=== PATIENT | female | born 1970 | race Caucasian/White ===

== ENCOUNTER 2019-10-12 13:40 | Inpatient (IN) ==
[2019-10-12] MEDS ORDERED: SODIUM CHLORIDE 0.9% 1000ML 1,000 ML IV ONE (13:56)
[2019-10-12] MEDS ORDERED: HYDROmorphone INJ 0.5 MG/0.5 ML SYR IV STA (13:56)
[2019-10-12] MEDS ORDERED: ONDANSETRON INJ 2 MG/ML 2 ML VIAL IV STA (13:56)
[2019-10-12 14:15] LABS: Basophils # (auto) 0.04 K/uL (0-0.2); Basophils % (auto) 0.2 %; Eosinophils # (auto) 0.06 K/uL (0-0.5); Eosinophils % (auto) 0.3 %; Hematocrit (blood only) 43.4 % (37-47); Hemoglobin 14.8 g/dL (12.0-16.0); Immature Granulocytes # (auto) 0.05 K/uL (0.00-0.02); Immature Granulocytes % (auto) 0.3 %; Lymphocytes # (auto) 2.82 K/uL (1.2-3.4); Lymphocytes % (auto) 15.3 %; Mean Corpuscular Hemoglobin 31.7 pg (25-34); Mean Corpuscular Hgb Conc 34.1 g/dL (32-36); Mean Corpuscular Volume 92.9 fL (80-100); Mean Platelet Volume 10.3 fL (7.4-10.4); Monocytes # (auto) 0.78 K/uL (0.11-0.59); Monocytes % (auto) 4.2 %; Neutrophils # (auto) 14.73 K/uL (1.4-6.5); Neutrophils % (auto) 79.7 %; Platelet Count 272 K/uL (130-400); RDW Coefficient of Variation 13.1 % (11.5-14.5); RDW Standard Deviation 45.1 fL (36.4-46.3); Red Blood Count 4.67 M/uL (4.2-5.4); White Blood Count 18.48 K/uL (4.8-10.8)
[2019-10-12 14:25] LABS: Appearance Urine Clear (Clear); Bacteria Urine Automated Negative (Negative); Blood Urine 2+ (Negative); Epithelial Cell Urine Auto 20-30 /lpf (0-5); Glucose Urine UA Negative (Negative); Ketones Urine 2+ (Negative); Leukocyte Esterase Urine Trace (Negative); Nitrite Urine Negative (Negative); Protein Urine Negative (Negative); RBC Urine Automated 0-4 /hpf (0-4); Specific Gravity Urine 1.022 (1.000-1.030); Urobilinogen Urine Negative (Negative)
[2019-10-12 14:31] LABS: Bilirubin Urine Negative (Negative); Color Urine Amber; Ictotest Urine Negative (Negative)
[2019-10-12 14:31] LABS: Albumin Level 3.8 gm/dl (3.4-5.0); BUN Creatinine Ratio 15.7 (10-20); Calcium 9.7 mg/dl (8.5-10.1); Creatinine Clr Calc Pharmacy 82.1 ml/min; Est GFR (African American) 91.9; Est GFR (Non-African American) 79.3; Potassium 3.7 mmol/L (3.5-5.1)
[2019-10-12 14:34] LABS: Albumin Globulin Ratio 0.8 (0.9-2); Bilirubin,Total 0.9 mg/dl (0.2-1); Total Protein 8.8 gm/dl (6.4-8.2)
--- NOTE | 2019-10-12 14:34 | Emergency Department Note ---
History of Present Illness General Chief complaint: Abdominal Pain Stated complaint: ABD PAIN History of Present Illness Maximum Pain Intensity: 4 This pt is a 53 yo female who presents to the ED with c/o L abd pain that began 2 days ago. Pt denies fever, but admits to chills. She has been nauseated. Denies eating anything unusual. Pt had diarrhea x 3 today, no BRBPR or black stools. Pt denies recent travel or sick contacts. 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 and A total of 10 systems reviewed and were otherwise negative Physical Exam Vital Signs Vital Signs - 24 hr 10/12/19 13:43 10/12/19 14:21 10/12/19 14:30 Temperature 36.8 C Temperature Source Oral Pulse Rate 107 H 91 H 90 Pulse Rate [Finger] Pulse Rate from SpO2 Sensor 92 H 91 H Respiratory Rate 18 20 13 Respiratory Effort / Characteristics Non-Labored Spontaneous Respiratory Depth Normal Respiratory Pattern Regular Blood Pressure 129/88 Blood Pressure [Left Arm] Blood Pressure Mean 101 Blood Pressure Mean [Left Arm] Blood Pressure Position Sitting Pulse Oximetry 97 95 95 Oxygen Delivery Method Room Air Sepsis Recent Fever Within 48 Hours No Sepsis New/Unexplained Change in Mental Status No Sepsis Action Taken by Nursing No Action Required 10/12/19 15:00 10/12/19 15:04 10/12/19 15:05 Temperature Temperature Source Pulse Rate 85 93 H Pulse Rate [Finger] 87 Pulse Rate from SpO2 Sensor Respiratory Rate 17 14 22 Respiratory Effort / Characteristics Respiratory Depth Respiratory Pattern Blood Pressure 126/85 Blood Pressure [Left Arm] 126/85 Blood Pressure Mean 95 Blood Pressure Mean [Left Arm] 98 Blood Pressure Position Pulse Oximetry 98 Oxygen Delivery Method Room Air Sepsis Recent Fever Within 48 Hours Sepsis New/Unexplained Change in Mental Status Sepsis Action Taken by Nursing 10/12/19 15:30 10/12/19 15:31 Temperature Temperature Source Pulse Rate 89 85 Pulse Rate [Finger] Pulse Rate from SpO2 Sensor Respiratory Rate 23 21 Respiratory Effort / Characteristics Respiratory Depth Respiratory Pattern Blood Pressure 128/90 Blood Pressure [Left Arm] Blood Pressure Mean 96 Blood Pressure Mean [Left Arm] Blood Pressure Position Pulse Oximetry Oxygen Delivery Method Sepsis Recent Fever Within 48 Hours Sepsis New/Unexplained Change in Mental Status Sepsis Action Taken by Nursing Vital signs reviewed. General: Well-appearing 49 yo female, in no significant distress. HEENT: No scleral icterus, moist mucous membranes Cardiovascular: Regular rate and rhythm, no extra sounds. Pulmonary: Clear to auscultation bilaterally, normal work of breathing. Abdomen: Soft, tender along the left upper and left lower quadrants, positive guarding, positive bowel sounds. Musculoskeletal: Atraumatic, no peripheral edema. Neurologic: Patient awake alert and oriented x 3 Skin: Warm, dry, no rash Course Administered Medications Enoxaparin Sodium (Lovenox) 40 mg SQ HS CLARE Stop: 11/11/19 20:59 Last Admin: 10/12/19 20:36 Dose: 40 mg Documented by: [id number] Ciprofloxacin (Cipro) 400 mg in 200 mls @ 100 mls/hr IV Q12H CLARE Stop: 10/23/19 03:59 Last Infusion: 10/13/19 06:20 Dose: 0 mls/hr Documented by: [id number] Admin: 10/13/19 04:17 Dose: 100 mls/hr Documented by: [id number] Metronidazole (Flagyl) 500 mg in 100 mls @ 100 mls/hr IV Q8H CLARE Stop: 10/22/19 22:59 Last Admin: 10/13/19 07:10 Dose: 100 mls/hr Documented by: [id number] Infusion: 10/12/19 23:27 Dose: 0 mls/hr Documented by: [id number] Admin: 10/12/19 22:25 Dose: 100 mls/hr Documented by: [id number] Sodium Chloride (Nss 1000ml) 1,000 mls @ 125 mls/hr IV .Q8H CLARE Stop: 11/11/19 16:25 Last Admin: 10/13/19 04:16 Dose: 125 mls/hr Documented by: [id number] Infusion: 10/13/19 03:23 Dose: 125 mls/hr Documented by: [id number] Admin: 10/12/19 19:23 Dose: 125 mls/hr Documented by: [id number] Morphine Sulfate (Morphine Sulfate) 4 mg IV Q4 PRN PRN Reason: Pain Stop: 10/26/19 16:25 Last Admin: 10/13/19 07:35 Dose: 4 mg Documented by: [id number] Admin: 10/13/19 01:52 Dose: 4 mg Documented by: [id number] Admin: 10/12/19 20:55 Dose: 4 mg Documented by: [id number] Admin: 10/12/19 16:40 Dose: 4 mg Documented by: [id number] Discontinued Medications Hydromorphone HCl (Dilaudid) 0.5 mg IV NOW STA Stop: 10/12/19 13:57 Last Admin: 10/12/19 14:12 Dose: 0.5 mg Documented by: [id number] Sodium Chloride (Nss 1000ml) 1,000 mls @ 125 mls/hr IV .Q8H ONE Stop: 10/12/19 21:55 Last Infusion: 10/12/19 23:27 Dose: 0 mls/hr Documented by: [id number] Admin: 10/12/19 14:12 Dose: 125 mls/hr Documented by: [id number] Ciprofloxacin (Cipro) 400 mg in 200 mls @ 200 mls/hr IV NOW STA Stop: 10/12/19 16:03 Last Infusion: 10/12/19 17:47 Dose: 0 mls/hr Documented by: [id number] Admin: 10/12/19 16:07 Dose: 200 mls/hr Documented by: [id number] Metronidazole (Flagyl) 500 mg in 100 mls @ 100 mls/hr IV NOW STA Stop: 10/12/19 16:03 Last Infusion: 10/12/19 17:13 Dose: 0 mls/hr Documented by: [id number] Admin: 10/12/19 15:18 Dose: 100 mls/hr Documented by: [id number] Ioversol (Optiray 320 100ml) 94 ml IV ONCE PRN PRN Reason: Interaction Checking Stop: 10/16/19 14:53 Last Admin: 10/12/19 14:55 Dose: 94 ml Documented by: [id number] Ondansetron HCl (Zofran) 4 mg IV NOW STA Stop: 10/12/19 13:57 Last Admin: 10/12/19 14:12 Dose: 4 mg Documented by: [id number] Medical Decision Making Differential Diagnosis Differential considered: pancreatitis, hepatitis, or acute cholecystitis, AAA, UTI, pyelonephritis, kidney stones, appendicitis, diverticulitis, shingles, bowel obstruction mesenteric ischemia, intussusception,hernia, testicular torsion, ovarian torsion, ruptured ovarian cyst,ectopic , . Medical Records Attestation: I reviewed the patient's medical records. Home Medications Current Medication List: was personally reviewed by me Laboratory Data Attestation: I reviewed the patient's lab results. Result diagrams: 10/13/19 05:02 10/13/19 05:02 Lab Results 10/12/19 10/12/19 10/12/19 Range/Units 14:07 14:07 14:14 WBC 18.48 H (4.8-10.8) K/uL RBC 4.67 (4.2-5.4) M/uL Hgb 14.8 (12.0-16.0) g/dL Hct 43.4 (37-47) % MCV 92.9 (80-100) fL MCH 31.7 (25-34) pg MCHC 34.1 (32-36) g/dL RDW Std Deviation 45.1 (36.4-46.3) fL RDW Coeff of Christie 13.1 (11.5-14.5) % Plt Count 272 (130-400) K/uL MPV 10.3 (7.4-10.4) fL Immature Gran % (Auto) 0.3 % Neut % (Auto) 79.7 % Lymph % (Auto) 15.3 % [place] % (Auto) 4.2 % Eos % (Auto) 0.3 % Baso % (Auto) 0.2 % Immature Gran # (Auto) 0.05 H (0.00-0.02) K/uL Neut # (Auto) 14.73 H (1.4-6.5) K/uL Lymph # (Auto) 2.82 (1.2-3.4) K/uL [place] # (Auto) 0.78 H (0.11-0.59) K/uL Eos # (Auto) 0.06 (0-0.5) K/uL Baso # (Auto) 0.04 (0-0.2) K/uL Sodium 133 L (136-145) mmol/L Potassium 3.7 (3.5-5.1) mmol/L Chloride 101 (98-107) mmol/L Carbon Dioxide 24 (21-32) mmol/L Anion Gap 8.0 (3-11) BUN 13 (7-18) mg/dl Creatinine 0.86 (0.6-1.2) mg/dl Est Cr Clr Drug Dosing 82.1 ml/min Est GFR ( Amer) 91.9 Est GFR (Non-Af Amer) 79.3 BUN/Creatinine Ratio 15.7 (10-20) Glucose 88 (70-99) mg/dl Calcium 9.7 (8.5-10.1) mg/dl Total Bilirubin 0.9 (0.2-1) mg/dl AST 11 L (15-37) U/L ALT 16 (12-78) U/L Alkaline Phosphatase 131 H (45-117) U/L Total Protein 8.8 H (6.4-8.2) gm/dl Albumin 3.8 (3.4-5.0) gm/dl Globulin 5.0 H (2.5-4.0) gm/dl Albumin/Globulin Ratio 0.8 L (0.9-2) Lipase 51 L (73-393) U/L Urine Color Giovanna Urine Appearance Clear (Clear) Urine pH 5.0 (4.5-7.5) Ur Specific [place] 1.022 (1.000-1.030) Urine Protein Negative (Negative) Urine Glucose (UA) Negative (Negative) Urine Ketones 2+ H (Negative) Urine Blood 2+ H (Negative) Urine Nitrite Negative (Negative) Urine Bilirubin Negative (Negative) Urine Urobilinogen Negative (Negative) Ur Leukocyte Esterase Trace H (Negative) Urine WBC (Auto) 1-5 (0-5) /hpf Urine RBC (Auto) 0-4 (0-4) /hpf U Hyaline Cast (Auto) 1-5 (0-5) /lpf U Epithel Cells (Auto) 20-30 H (0-5) /lpf Urine Bacteria (Auto) Negative (Negative) Imaging Data Radiologist's Impression: CT abd pelvis IV con only CLINICAL HISTORY: 49 years-old Female presenting with left sided abdominal pain. TECHNIQUE: Multidetector CT of the abdomen and pelvis was performed after the administration of intravenous contrast. IV contrast: 94 mL of Optiray. One or more dose lowering techniques were used consistent with the principles of ALARA (as low as reasonably achievable), including automatic exposure control, mA or kV adjustment to individual patient size, and/or use of iterative reconstruction. COMPARISON: None. CT DOSE (mGy.cm): The estimated cumulative dose is 618.73 mGy.cm. FINDINGS: Scenic Designer topogram: Unremarkable. Lung bases: Normal heart size. No pericardial or pleural effusion. Minimal dependent changes likely atelectasis. Liver: Normal morphology. No liver lesion. Patent hepatic vasculature. Biliary: No intrahepatic or extrahepatic biliary ductal dilatation. Normal gallbladder. Pancreas: Mild parenchymal atrophy. Spleen: Normal. Adrenal glands: Normal. Kidneys and ureters: 3 mm punctate nonobstructing calculus at the lower pole of the right kidney. No hydronephrosis. Bladder: Incompletely evaluated secondary to underdistention. Pelvic organs: Uterus surgically absent. No adnexal masses. Bowel: Diverticulosis of the proximal to mid sigmoid and distal descending colon with focal wall thickening and pericolonic inflammatory change at the junction of the descending and sigmoid colon. Focus of extraluminal gas in the mesentery (series 3 image 276). No focal fluid collection to suggest abscess at this time. Adjacent peritoneal thickening. Peritoneal cavity: Trace fluid in the left paracolic gutter. No focal fluid collection to suggest abscess. Gas collection in the mesentery as mentioned. No free intraperitoneal gas despite the focus of extraluminal gas. Lymph nodes: No enlarged lymph nodes in the abdomen or pelvis. Vasculature: Aorta and IVC patent and normal in caliber. Abdominal wall: Normal. Musculoskeletal: Degenerative changes of the spine. IMPRESSION: 1. Acute diverticulitis at the junction of the descending and sigmoid colon with extraluminal foci of gas in the mesentery. No free air. No focal fluid collection to suggest abscess. Moderate surrounding inflammatory change. ACT 112: Negative or not required by law. Electronically signed by: Rod Payan M.D. 10/12/2019 3:15 PM Dictated: 10/12/19 1505 Transcribed: 10/12/19 1505 ECG Data Additional Comments: An order for cardiac monitoring was placed and the patient is found to be in a normal sinus rhythm at 90 bpm. Blood Pressure Blood Pressure Findings: Normal blood pressure Blood Pressure Disposition: did not require urgent referral MDM Narrative This patient was evaluated and appeared to be in no significant distress. IV access was obtained and laboratory work was drawn. The patient was placed on the security monitor and found to be in a sinus rhythm. IV fluids were initiated. Patient was medicated with IV Dilaudid and Zofran for her discomfort. CT imaging was ordered. Patient is noted to have an elevated WBC at 18.48. CT reveals evidence of an acute diverticulitis along the junction of the descending and sigmoid colon with an extraluminal foci of gas. Patient was informed of the findings. Patient has a penicillin allergy and was medicated with IV Cipro and Flagyl. I did speak with hospitalist service who will evaluate the patient for further management. Patient is aware of the plan and agrees. Impression & Plan Diverticulitis Discharge Plan Visit Data *Final* Discharge Date/Time: 10/12/19 16:12 Chief Complaint: Abdominal Pain Stated Complaint: ABD PAIN ED Provider: Akilah Tate Discharge Problem: Diverticulitis Patient Disposition: Admitted As Inpatient Discharge Instructions Interventions: ED Discharge Assessment Last Done: 10/12/19 16:12
[2019-10-12] MEDS ORDERED: IOVERSOL 100ml IV PRN (14:54)
[2019-10-12] MEDS ORDERED: CIPROFLOXACIN / D5W 400 MG/200 ML BAG IV STA (15:04)
[2019-10-12] MEDS ORDERED: metroNIDAZOLE 500 MG/100 ML BAG IV STA (15:04)
--- NOTE | 2019-10-12 15:17 | CT Scan Report ---
CT abd pelvis IV con only CLINICAL HISTORY: 49 years-old Female presenting with left sided abdominal pain. TECHNIQUE: Multidetector CT of the abdomen and pelvis was performed after the administration of intra venous contrast. IV contrast: 94 mL of Optiray. One or more dose lowering techniques were used consis tent with the principles of ALARA (as low as reasonably achievable), including automatic exposure con trol, mA or kV adjustment to individual patient size, and/or use of iterative reconstruction. COMPARISON: None. CT DOSE (mGy.cm): The estimated cumulative dose is 618.73 mGy.cm. FINDINGS: Solar Electric/Photovoltaic Installer topogram: Unremarkable. Lung bases: Normal heart size. No pericardial or pleural effusion. Minimal dependent changes likely a telectasis. Liver: Normal morphology. No liver lesion. Patent hepatic vasculature. Biliary: No intrahepatic or extrahepatic biliary ductal dilatation. Normal gallbladder. Pancreas: Mild parenchymal atrophy. Spleen: Normal. Adrenal glands: Normal. Kidneys and ureters: 3 mm punctate nonobstructing calculus at the lower pole of the right kidney. No hydronephrosis. Bladder: Incompletely evaluated secondary to underdistention. Pelvic organs: Uterus surgically absent. No adnexal masses. Bowel: Diverticulosis of the proximal to mid sigmoid and distal descending colon with focal wall thic [place] and pericolonic inflammatory change at the junction of the descending and sigmoid colon. Focus of extraluminal gas in the mesentery (series 3 image 276). No focal fluid collection to suggest absc ess at this time. Adjacent peritoneal thickening. Peritoneal cavity: Trace fluid in the left paracolic gutter. No focal fluid collection to suggest abs cess. Gas collection in the mesentery as mentioned. No free intraperitoneal gas despite the focus of extraluminal gas. Lymph nodes: No enlarged lymph nodes in the abdomen or pelvis. Vasculature: Aorta and IVC patent and normal in caliber. Abdominal wall: Normal. Musculoskeletal: Degenerative changes of the spine. IMPRESSION: 1. Acute diverticulitis at the junction of the descending and sigmoid colon with extraluminal foci o f gas in the mesentery. No free air. No focal fluid collection to suggest abscess. Moderate surroundi ng inflammatory change. ACT 112: Negative or not required by law. Electronically signed by: Rod Payan M.D. 10/12/2019 3:15 PM
--- NOTE | 2019-10-12 16:24 | History & Physical Report ---
Date of Service October 12, 2019 Assessment & Plan (1) Acute diverticulitis: Pt with acute abdominal pain x 3 days, change in stool habits, decreased appetite. Leukocytosis at 18.48k CT scan abdomen pelvis revealed acute diverticulitis at the junction of the descending and sigmoid colon with extraluminal foci of gas in the mesentery. No free air. No focal fluid collection to suggest abscess. Moderate surrounding inflammatory change. admit to med/surg consult general surgery - spoke to Dr. Pedersen -appreciate his input Continue Cipro/Flagyl NPO except ice chips Bowel rest IVF 125cc/hr (2) Microscopic hematuria: UA +2 blood recommend repeat UA either while hospitalized or as outpt for follow up (3) DVT prophylaxis: Lovenox SQ Disposition: admit to med/surg Follow up: PCP at [facility] upon discharge along with appropriate surgical follow up Pt was seen and examined in collaboration with Dr. Arevalo, please see addendum Admission and Anticipated Discharge Date Admission Date: October 12, 2019 History of Present Illness Chief Complaint: Abdominal pain x3 days. Primary Care Provider: [facility] This is a pleasant 49-year-old female who has no significant past medical history who presents to ED secondary to abdominal pain x3 days. Abdominal pain mostly located left upper and left lower quadrant. Pain is constant but comes and goes in severity. Is improved with rest and is made worse with any sort of position change. She denies any nausea and vomiting but overall has had significant decreased appetite and has not anything to eat or drink for the past 24 hours. She further elicits chills. She did have 3 BMs yesterday that were formed and 2 this morning that were diarrhea. She denies any melena or hematochezia. Typically she moves her bowels once daily first thing in the morning. She is never had anything like this in the past, except pain when she had a hysterectomy. She denies any cody fever, sweats, dizziness, lightheadedness, syncope, chest pain, shortness breath, palpitations, cough, emesis, hematemesis, dysuria, increased urgency or frequency with urination. She denies any recent respiratory symptoms or known contact or exposure to covid-19. In ED patient remained hemodynamically stable. She had leukocytosis at 18.4k, H&H stable at 14.8 and 43.4, platelet 272, sodium 133, K3.7, BUN 13, creatinine 0.86, lipase 51. Urinalysis +2 ketones, +2 blood numerous epithelial cells, likely contaminated. CT scan abdomen pelvis revealed acute diverticulitis at the junction of the descending and sigmoid colon with extraluminal foci of gas in the mesentery. No free air. No focal fluid collection to suggest abscess. Moderate surrounding inflammatory change. She was started on IV Cipro/Flagyl in ED as well as IVF. Pain improved with dilaudid. 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 Beliefs That Will Affect Care: None marital status: Current Living Situation: Spouse Other Information That Helps Us Care for You: No Feels Safe at Home: Yes Safety Concerns: Feels Safe At This Time Smoking Status: Current every day smoker Tobacco Type: cigarettes ; packs per day: 0.5 ; Years Smoked: 25 ; Hx Alcohol Use: Yes Alcohol type: wine Alcohol Intake Frequency: Rarely Hx Substance Use: No Review of Systems Review of Systems: All systems reviewed & are unremarkable except as noted in HPI & below Physical Exam Physical Exam: Constitutional: WD/WN, vitals as above, NAD, sitting up in bed, pleasant, conversing easily Head: Normocephalic, Atraumatic Eyes: PERRL, conjunctivae normal, anicteric sclerae ENMT: external ear and nose normal, oropharynx normal Neck: trachea midline, no thyromegaly normal visual inspection Respiratory: normal respiratory effort, lungs clear to auscultation, no wheeze, rales, rhonchi. Normal insp/exp effort, no accessory muscle use Cardiovascular: RRR, no murmur, no edema Vessels: no JVD or carotid bruit Chest: normal inspection of chest Abdomen: normal bowel sounds, soft, tender throughout abdominal with maximal pain at LLQ and LUQ, no rebound, guarding, no hepatosplenomegaly Musculoskeletal: no cyanosis or clubbing, extremities motor strength 5/5 Skin: no rashes, warm and dry normal turgor Neurologic: PERRL, , accommodation nl, no face palsy, no dysarthria CN's II-XI intact bilaterally and moves all extremities Psychiatric: A+Ox3, euthymic affect Lymphatic: no cervical or axillary lymphadenopathy : deferred Results & Data Results & Data ([facility]) Vital Signs (Past 12 Hours) Vital Signs Temp Pulse Pulse Resp BP BP Pulse Ox 10/12/19 16:01 88 17 10/12/19 16:00 85 22 135/87 10/12/19 15:31 85 21 10/12/19 15:30 89 23 128/90 10/12/19 15:05 93 H 22 126/85 10/12/19 15:04 85 14 10/12/19 15:00 87 17 126/85 98 10/12/19 14:30 90 13 95 10/12/19 14:21 91 H 20 95 10/12/19 13:43 36.8 C 107 H 18 129/88 97 Laboratory Results Short CBC 10/12/19 Range/Units 14:07 WBC 18.48 H (4.8-10.8) K/uL Hgb 14.8 (12.0-16.0) g/dL Hct 43.4 (37-47) % Plt Count 272 (130-400) K/uL BMP 10/12/19 14:07 Sodium 133 L Potassium 3.7 Chloride 101 Carbon Dioxide 24 BUN 13 Creatinine 0.86 Glucose 88 Calcium 9.7 Liver Function 10/12/19 Range/Units 14:07 Total Bilirubin 0.9 (0.2-1) mg/dl AST 11 L (15-37) U/L ALT 16 (12-78) U/L Alkaline Phosphatase 131 H (45-117) U/L Albumin 3.8 (3.4-5.0) gm/dl Urine 10/12/19 Range/Units 14:14 Urine Color Giovanna Urine Appearance Clear (Clear) Urine pH 5.0 (4.5-7.5) Ur Specific [place] 1.022 (1.000-1.030) Urine Protein Negative (Negative) Urine Glucose (UA) Negative (Negative) Diagnostic Findings abd/pelvis CT: FINDINGS: Playground Official topogram: Unremarkable. Lung bases: Normal heart size. No pericardial or pleural effusion. Minimal dependent changes likely atelectasis. Liver: Normal morphology. No liver lesion. Patent hepatic vasculature. Biliary: No intrahepatic or extrahepatic biliary ductal dilatation. Normal gallbladder. Pancreas: Mild parenchymal atrophy. Spleen: Normal. Adrenal glands: Normal. Kidneys and ureters: 3 mm punctate nonobstructing calculus at the lower pole of the right kidney. No hydronephrosis. Bladder: Incompletely evaluated secondary to underdistention. Pelvic organs: Uterus surgically absent. No adnexal masses. Bowel: Diverticulosis of the proximal to mid sigmoid and distal descending colon with focal wall thickening and pericolonic inflammatory change at the junction of the descending and sigmoid colon. Focus of extraluminal gas in the mesentery (series 3 image 276). No focal fluid collection to suggest abscess at this time. Adjacent peritoneal thickening. Peritoneal cavity: Trace fluid in the left paracolic gutter. No focal fluid collection to suggest abscess. Gas collection in the mesentery as mentioned. No free intraperitoneal gas despite the focus of extraluminal gas. Lymph nodes: No enlarged lymph nodes in the abdomen or pelvis. Vasculature: Aorta and IVC patent and normal in caliber. Abdominal wall: Normal. Musculoskeletal: Degenerative changes of the spine. IMPRESSION: 1. Acute diverticulitis at the junction of the descending and sigmoid colon with extraluminal foci of gas in the mesentery. No free air. No focal fluid collection to suggest abscess. Moderate surrounding inflammatory change. Medications Administered Sodium Chloride (Nss 1000ml) 1,000 mls @ 125 mls/hr IV .Q8H ONE Stop: 10/12/19 21:55 Last Admin: 10/12/19 14:12 Dose: 125 mls/hr Documented by: [id number] Discontinued Medications Hydromorphone HCl (Dilaudid) 0.5 mg IV NOW STA Stop: 10/12/19 13:57 Last Admin: 10/12/19 14:12 Dose: 0.5 mg Documented by: [id number] Ciprofloxacin (Cipro) 400 mg in 200 mls @ 200 mls/hr IV NOW STA Stop: 10/12/19 16:03 Last Admin: 10/12/19 16:07 Dose: 200 mls/hr Documented by: [id number] Metronidazole (Flagyl) 500 mg in 100 mls @ 100 mls/hr IV NOW STA Stop: 10/12/19 16:03 Last Admin: 10/12/19 15:18 Dose: 100 mls/hr Documented by: [id number] Ioversol (Optiray 320 100ml) 94 ml IV ONCE PRN PRN Reason: Interaction Checking Stop: 10/16/19 14:53 Last Admin: 10/12/19 14:55 Dose: 94 ml Documented by: [id number] Ondansetron HCl (Zofran) 4 mg IV NOW STA Stop: 10/12/19 13:57 Last Admin: 10/12/19 14:12 Dose: 4 mg Documented by: [id number] Code Status & VTE Plan Code Status Full Code VTE Prophylaxis Plan VTE Prophylaxis will be ordered: Yes Supervising Physician Co-Signing Physician Notes Attending addendum: The patient was seen and examined in medical floor She is a 49-year-old female without significant past medical history has been c omplaining of left lower quadrant abdominal pain since Saturday last Condition got worse with nausea but no vomiting but chills and sweating Noted to have acute diverticulitis with microscopic perforation with abscess On examination Lying in bed comfortably Hemodynamically stable and is afebrile Chestclear to auscultate bilaterally HeartS1-S2 regular no murmur Abdomen-soft not distended, bowel sounds present, tenderness in the left lower quadrant Extremities-trace edema bilaterally Admission labs and imaging studies reviewed Has acute diverticulitis with microperforation Surgery consulted N.p.o., IV fluid and symptomatic management Agree with assessment and plan as outlined above by ARABELLA Kessler DR
[2019-10-12] MEDS: MoRPHine SULFATE 4 MG/ML 1 ML CARP\\VIAL IV PRN ×2 (16:40→20:55)
--- NOTE | 2019-10-12 16:47 | Surgery Consultation ---
Date of Consultation October 12, 2019 Assessment & Plan (1) Acute diverticulitis: is is a 49y F with no significant past medical history who presents to the [facility] ED on 10/12/19 with complaints of abdominal pain. Workup has reveled evidence of acute diverticulitis at the junction of the descending and sigmoid colon, with extraluminal foci of gas in the mesentery. No fluid collection seen at this time. WBC 18. At this time would recommend a trial of conservative management. Continue IV abx, currently ordered for IV cipro and flagyl. Will plan to keep patient NPO with ice chips over the next 48hrs for bowel rest. We will continue to follow. Dr Pedersen-patient seen and examined Agree with above assessment and plan History of Present Illness Attending Physician: Elizabeth Arevalo MD History of Present Illness This is a 49y F with no significant past medical history who presents to the [facility] ED on 10/12/19 with complaints of abdominal pain. Patient reports the pain began on Saturday night and continued through Saturday. She initially thought she was experiencing gas pains and she did have a normal BM on Saturday. Unfortunately her abdominal pain continued to persist and she developed episodes of diarrhea(non-bloody) today, prompting her to come to the ED for further evaluation. In the ED she was worked up with a CT a/p that revealed acute diverticulitis at the junction of the descending and sigmoid colon with extraluminal foci of gas in the mesentery. No free air, and no fluid collection to suggest abscess. WBC 18.4. Patient denies ever having an episode of diverticulitis before. She has not yet had a colonoscopy. She reports her pain is generalized, slightly worse on the L side. It is crampy in character when lying down and sharp with movements, rating it an 8/10 at its worst. She has not had much of an appetite and hasn't eaten a meal since Saturday. She denies any fevers, nausea/vomiting, chest pains, or SOB. 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 Beliefs That Will Affect Care: None marital status: Current Living Situation: Spouse Other Information That Helps Us Care for You: No Feels Safe at Home: Yes Safety Concerns: Feels Safe At This Time Smoking Status: Current every day smoker Tobacco Type: cigarettes ; packs per day: 0.5 ; Years Smoked: 25 ; Hx Alcohol Use: Yes Alcohol type: wine Alcohol Intake Frequency: Rarely Hx Substance Use: No Review of Systems Constitutional: + chills (on Saturday); no fever Respiratory: no dyspnea Cardiovascular: no chest pain Gastrointestinal: + abdominal pain (generalized, but slightly worse on the L side), + bloating, + cramping and + diarrhea/loose stools (today); no nausea and no vomiting Physical Exam Physical Exam: awake/alert Constitutional: well developed and well nourished; no acute distress Respiratory: normal respiratory effort Gastrointestinal (Abdomen): Percussion/Palpation: + abdomen tender (generalized TTP, worse in mid abd on R and L sides) and abdomen soft Results & Data Vital Signs (Past 12 Hours) Vital Signs Temp Pulse Pulse Resp BP BP Pulse Ox 10/12/19 16:01 88 17 10/12/19 16:00 85 22 135/87 10/12/19 15:31 85 21 10/12/19 15:30 89 23 128/90 10/12/19 15:05 93 H 22 126/85 10/12/19 15:04 85 14 10/12/19 15:00 87 17 126/85 98 10/12/19 14:30 90 13 95 10/12/19 14:21 91 H 20 95 10/12/19 13:43 36.8 C 107 H 18 129/[address] abd pelvis IV con only CLINICAL HISTORY: 49 years-old Female presenting with left sided abdominal pain. TECHNIQUE: Multidetector CT of the abdomen and pelvis was performed after the administration of intravenous contrast. IV contrast: 94 mL of Optiray. One or more dose lowering techniques were used consistent with the principles of ALARA (as low as reasonably achievable), including automatic exposure control, mA or kV adjustment to individual patient size, and/or use of iterative ngoc nstruction. COMPARISON: None. CT DOSE (mGy.cm): The estimated cumulative dose is 618.73 mGy.cm. FINDINGS: [employer]el[employer] Data Entry topogram: Unremarkable. Lung bases: Normal heart size. No pericardial or pleural effusion. Minimal dependent changes likely atelectasis. Liver: Normal morphology. No liver lesion. Patent hepatic vasculature. Biliary: No intrahepatic or extrahepatic biliary ductal dilatation. Normal gallbladder. Pancreas: Mild parenchymal atrophy. Spleen: Normal. Adrenal glands: Normal. Kidneys and ureters: 3 mm punctate nonobstructing calculus at the lower pole of the right kidney. No hydronephrosis. Bladder: Incompletely evaluated secondary to underdistention. Pelvic organs: Uterus surgically absent. No adnexal masses. Bowel: Diverticulosis of the proximal to mid sigmoid and distal descending colon with focal wall thickening and pericolonic inflammatory change at the junction of the descending and sigmoid colon. Focus of extraluminal gas in the mesentery (series 3 image 276). No focal fluid collection to suggest abscess at this time. Adjacent peritoneal thickening. Peritoneal cavity: Trace fluid in the left paracolic gutter. No focal fluid collection to suggest abscess. Gas collection in the mesentery as mentioned. No free intraperitoneal gas despite the focus of extraluminal gas. Lymph nodes: No enlarged lymph nodes in the abdomen or pelvis. Vasculature: Aorta and IVC patent and normal in caliber. Abdominal wall: Normal. Musculoskeletal: Degenerative changes of the spine. IMPRESSION: 1. Acute diverticulitis at the junction of the descending and sigmoid colon with extraluminal foci of gas in the mesentery. No free air. No focal fluid collection to suggest abscess. Moderate surrounding inflammatory change. ACT 112: Negative or not required by law. Electronically signed by: Rod Payan M.D. 10/12/2019 3:15 PM PG Care Time/CCT Total # of Minutes Spent Total Time Spent with Patient: Total time spent is greater than 50% in coordination of care (as documented) at patient's floor/unit and/or counseling patient: Coding Level of Care Code 15164 Inpt Consult Level 3 Diagnoses Acute diverticulitis K57.92
[2019-10-12] MEDS: SODIUM CHLORIDE 0.9% 1000ML 1,000 ML IV SCH (19:23)
[2019-10-12] MEDS: ENOXAPARIN INJ 40 MG/0.4 ML SYR SQ SCH (20:36)
[2019-10-12] MEDS: metroNIDAZOLE 500 MG/100 ML BAG IV SCH (22:25)
[2019-10-13] MEDS: MoRPHine SULFATE 4 MG/ML 1 ML CARP\\VIAL IV PRN ×4 (01:52→20:27)
[2019-10-13] MEDS: SODIUM CHLORIDE 0.9% 1000ML 1,000 ML IV SCH ×4 (04:16→23:56)
[2019-10-13] MEDS: CIPROFLOXACIN / D5W 400 MG/200 ML BAG IV SCH ×2 (04:17→16:41)
[2019-10-13 05:19] LABS: Basophils # (auto) 0.03 K/uL (0-0.2); Basophils % (auto) 0.2 %; Eosinophils # (auto) 0.08 K/uL (0-0.5); Eosinophils % (auto) 0.6 %; Hematocrit (blood only) 37.9 % (37-47); Hemoglobin 12.3 g/dL (12.0-16.0); Immature Granulocytes # (auto) 0.02 K/uL (0.00-0.02); Immature Granulocytes % (auto) 0.2 %; Mean Corpuscular Hemoglobin 30.4 pg (25-34); Mean Corpuscular Hgb Conc 32.5 g/dL (32-36); Mean Corpuscular Volume 93.8 fL (80-100); Mean Platelet Volume 10.4 fL (7.4-10.4); Monocytes # (auto) 0.64 K/uL (0.11-0.59); Monocytes % (auto) 4.9 %; Neutrophils # (auto) 9.91 K/uL (1.4-6.5); Neutrophils % (auto) 75.1 %; Platelet Count 210 K/uL (130-400); RDW Coefficient of Variation 13.1 % (11.5-14.5); RDW Standard Deviation 45.2 fL (36.4-46.3); Red Blood Count 4.04 M/uL (4.2-5.4); White Blood Count 13.18 K/uL (4.8-10.8)
[2019-10-13 05:47] LABS: BUN Creatinine Ratio 21.3 (10-20); Calcium 8.7 mg/dl (8.5-10.1); Creatinine Clr Calc Pharmacy 105.4 ml/min; Est GFR (African American) 119.6; Est GFR (Non-African American) 103.2; Potassium 3.9 mmol/L (3.5-5.1)
[2019-10-13] MEDS: metroNIDAZOLE 500 MG/100 ML BAG IV SCH ×3 (07:10→22:35)
--- NOTE | 2019-10-13 07:46 | Surgery Progress Note ---
Date of Service October 13, 2019 Assessment & Plan (1) Acute diverticulitis: cont NPO except ice cont IV atbx, pain med likely will need 4-5 days IV atbx in hospital encouraged to walk in hallway Subjective afeb awake alert- affect- noormal mild pain Physical Exam Constitutional: no acute distress Respiratory: normal respiratory effort Cardiovascular: Rate/Rhythm: regular rate Gastrointestinal (Abdomen): mild lower abd discomfort Skin: no rashes, warm and dry Neurologic: awake Psychiatric: Orientation: alert Results & Data Vital Signs (Past 12 Hours) Vital Signs Temp Pulse Resp BP Pulse Ox 10/12/19 23:18 37 C 80 16 101/66 93 PG Care Time/CCT Total # of Minutes Spent Total Time Spent with Patient: Total time spent is greater than 50% in coordination of care (as documented) at patient's floor/unit and/or counseling patient: Coding Level of Care Code 34291 Subseq Hosp Care Lvl 3 Diagnoses Acute diverticulitis K57.92
--- NOTE | 2019-10-13 09:00 | Hospitalist Progress Note ---
Date of Service October 13, 2019 Assessment & Plan (1) Acute diverticulitis: Pt with acute abdominal pain x 3 days, change in stool habits, decreased appetite. Leukocytosis at 18.48k now 13k CT scan abdomen pelvis revealed acute diverticulitis at the junction of the descending and sigmoid colon with extraluminal foci of gas in the mesentery. No free air. No focal fluid collection to suggest abscess. Moderate surrounding inflammatory change. Continue Cipro/Flagyl Day #2 NPO except ice chips continue Bowel rest continue IVF 125cc/hr while NPO appreciate general surgery input IV morphine q4h prn pain, will schedule IV acetaminophen incentive spirometry and ambulation encouraged (2) Microscopic hematuria: UA +2 blood on admission repeat UA tomorrow (3) DVT prophylaxis: Lovenox SQ Disposition: admit to med/surg likely to need IV antibiotics for 4 to 5 days per surgery Follow up: PCP at [facility] upon discharge along with appropriate surgical follow up Pt was seen and examined in collaboration with Dr. Arevalo, please see addendum Admission and Anticipated Discharge Date Admission Date: October 12, 2019 Supervising Physician Co-Signing Physician Notes Attending addendum: The patient was seen and examined in medical floor She has been ambulating without much pain Complains to have pain in left lower quadrant especially with movement of the waist while sitting down in bed and moving around in bed No fever and no chills On examination No apparent distress at rest Hemodynamically stable Chest-clear Abdomen-soft, tender in the left lower quadrant, no guarding and no rigidity, bowel sounds present Extremities-negative Labs and imaging studies noted Reviewed assessment and plan as outlined above by Sol Arevalo Subjective Patient was seen and examined in room 306-1. Follow-up acute diverticulitis hospital day 1. She feels about 50% better since yesterday in regards to pain. Currently complains of left lower quadrant abdominal pain, dull ache, worse with movement, 5/10, temporary improvement with morphine. She did have small BM this morning that was diarrhea. She denies fever, chills, sweats, lightheadedness, dizziness, chest pain, shortness of breath, nausea, vomiting. She is urinating without difficulty. Review of Systems Review of Systems: All systems reviewed & are unremarkable except as noted in HPI & below Physical Exam Physical Exam: Gen: WD/WN, F, NAD, A&O x3 HEENT: Normocephalic, atraumatic, conjunctivae moist, sclerae anicteric, mucous membranes moist. Lung: Clear to Auscultation bilaterally, no wheezes/rales/rhonchi Heart: Regular rate, regular rhythm, no murmurs, rubs, or gallops Abdomen: Soft, tender to palp LLQ, no rebound, guarding or rigidity, ND +BS x 4 Extremities: No edema Skin: Warm, no rash, negative turgor. Results & Data Results & Data ([facility]) Vital Signs (Past 12 Hours) Vital Signs Temp Pulse Resp BP Pulse Ox 10/13/19 07:42 36.6 C 73 16 100/68 96 10/12/19 23:18 37 C 80 16 101/66 93 Laboratory Results Short CBC 10/12/19 10/13/19 Range/Units 14:07 05:02 WBC 18.48 H 13.18 H (4.8-10.8) K/uL Hgb 14.8 12.3 (12.0-16.0) g/dL Hct 43.4 37.9 (37-47) % Plt Count 272 210 (130-400) K/uL BMP 10/12/19 10/13/19 14:07 05:02 Sodium 133 L 137 Potassium 3.7 3.9 Chloride 101 109 H Carbon Dioxide 24 22 BUN 13 14 Creatinine 0.86 0.67 Glucose 88 91 Calcium 9.7 8.7 Liver Function 10/12/19 Range/Units 14:07 Total Bilirubin 0.9 (0.2-1) mg/dl AST 11 L (15-37) U/L ALT 16 (12-78) U/L Alkaline Phosphatase 131 H (45-117) U/L Albumin 3.8 (3.4-5.0) gm/dl Urine 10/12/19 Range/Units 14:14 Urine Color Giovanna Urine Appearance Clear (Clear) Urine pH 5.0 (4.5-7.5) Ur Specific [place] 1.022 (1.000-1.030) Urine Protein Negative (Negative) Urine Glucose (UA) Negative (Negative) Medications Administered Enoxaparin Sodium (Lovenox) 40 mg SQ HS CLARE Stop: 11/11/19 20:59 Last Admin: 10/12/19 20:36 Dose: 40 mg Documented by: [id number] Ciprofloxacin (Cipro) 400 mg in 200 mls @ 100 mls/hr IV Q12H CLARE Stop: 10/23/19 03:59 Last Infusion: 10/13/19 06:20 Dose: 0 mls/hr Documented by: [id number] Admin: 10/13/19 04:17 Dose: 100 mls/hr Documented by: [id number] Metronidazole (Flagyl) 500 mg in 100 mls @ 100 mls/hr IV Q8H CLARE Stop: 10/22/19 22:59 Last Admin: 10/13/19 07:10 Dose: 100 mls/hr Documented by: [id number] Infusion: 10/12/19 23:27 Dose: 0 mls/hr Documented by: [id number] Admin: 10/12/19 22:25 Dose: 100 mls/hr Documented by: [id number] Sodium Chloride (Nss 1000ml) 1,000 mls @ 125 mls/hr IV .Q8H CLARE Stop: 11/11/19 16:25 Last Admin: 10/13/19 04:16 Dose: 125 mls/hr Documented by: [id number] Infusion: 10/13/19 03:23 Dose: 125 mls/hr Documented by: [id number] Admin: 10/12/19 19:23 Dose: 125 mls/hr Documented by: [id number] Morphine Sulfate (Morphine Sulfate) 4 mg IV Q4 PRN PRN Reason: Pain Stop: 10/26/19 16:25 Last Admin: 10/13/19 07:35 Dose: 4 mg Documented by: [id number] Admin: 10/13/19 01:52 Dose: 4 mg Documented by: [id number] Admin: 10/12/19 20:55 Dose: 4 mg Documented by: [id number] Admin: 10/12/19 16:40 Dose: 4 mg Documented by: [id number] Discontinued Medications Hydromorphone HCl (Dilaudid) 0.5 mg IV NOW STA Stop: 10/12/19 13:57 Last Admin: 10/12/19 14:12 Dose: 0.5 mg Documented by: [id number] Sodium Chloride (Nss 1000ml) 1,000 mls @ 125 mls/hr IV .Q8H ONE Stop: 10/12/19 21:55 Last Infusion: 10/12/19 23:27 Dose: 0 mls/hr Documented by: [id number] Admin: 10/12/19 14:12 Dose: 125 mls/hr Documented by: [id number] Ciprofloxacin (Cipro) 400 mg in 200 mls @ 200 mls/hr IV NOW STA Stop: 10/12/19 16:03 Last Infusion: 10/12/19 17:47 Dose: 0 mls/hr Documented by: [id number] Admin: 10/12/19 16:07 Dose: 200 mls/hr Documented by: [id number] Metronidazole (Flagyl) 500 mg in 100 mls @ 100 mls/hr IV NOW STA Stop: 10/12/19 16:03 Last Infusion: 10/12/19 17:13 Dose: 0 mls/hr Documented by: [id number] Admin: 10/12/19 15:18 Dose: 100 mls/hr Documented by: [id number] Ioversol (Optiray 320 100ml) 94 ml IV ONCE PRN PRN Reason: Interaction Checking Stop: 10/16/19 14:53 Last Admin: 10/12/19 14:55 Dose: 94 ml Documented by: [id number] Ondansetron HCl (Zofran) 4 mg IV NOW STA Stop: 10/12/19 13:57 Last Admin: 10/12/19 14:12 Dose: 4 mg Documented by: [id number]
[2019-10-13] MEDS: ACETAMINOPHEN 1,000 MG/100 ML VIAL IV SCH ×2 (09:38→17:36)
[2019-10-13] MEDS: ONDANSETRON INJ 2 MG/ML 2 ML VIAL IV PRN (20:35)
[2019-10-13] MEDS: ENOXAPARIN INJ 40 MG/0.4 ML SYR SQ SCH (20:45)
[2019-10-14] MEDS: ACETAMINOPHEN 1,000 MG/100 ML VIAL IV SCH ×4 (00:22→21:37)
[2019-10-14] MEDS: CIPROFLOXACIN / D5W 400 MG/200 ML BAG IV SCH ×2 (03:50→15:30)
[2019-10-14] MEDS: metroNIDAZOLE 500 MG/100 ML BAG IV SCH ×3 (06:23→22:18)
[2019-10-14] MEDS: SODIUM CHLORIDE 0.9% 1000ML 1,000 ML IV SCH ×2 (06:26→17:14)
[2019-10-14 06:35] LABS: Appearance Urine Clear (Clear); Bacteria Urine Automated Negative (Negative); Bilirubin Urine Negative (Negative); Blood Urine Trace (Negative); Cast Urine Automated 0 /lpf (0-5); Color Urine Yellow; Glucose Urine UA Negative (Negative); Ketones Urine 3+ (Negative); Leukocyte Esterase Urine Trace (Negative); Nitrite Urine Negative (Negative); Protein Urine Negative (Negative); Specific Gravity Urine 1.026 (1.000-1.030); Urobilinogen Urine Negative (Negative)
--- NOTE | 2019-10-14 06:37 | Surgery Progress Note ---
Date of Service October 14, 2019 Assessment & Plan (1) Acute diverticulitis: will begin clear liquids and advance very slowly 2-3 more days IV atbx, then 10 days po ( at least total 2 wks ) possible rescan, if doing well, may wait 7-10 days Subjective afeb feeling better Physical Exam Constitutional: well nourished; no acute distress and not ill appearing Respiratory: normal respiratory effort; no respiratory distress Cardiovascular: Rate/Rhythm: regular rate Gastrointestinal (Abdomen): Inspection/Auscultation: abdomen not distended Skin: no rashes, warm and dry Neurologic: awake Psychiatric: Orientation: alert Results & Data Vital Signs (Past 12 Hours) Vital Signs Temp Pulse Resp BP Pulse Ox 10/13/19 23:17 36.5 C 60 16 108/71 96 PG Care Time/CCT Total # of Minutes Spent Total Time Spent with Patient: Total time spent is greater than 50% in coordination of care (as documented) at patient's floor/unit and/or counseling patient: Coding Level of Care Code 13107 Inpt Consult Level 3 Diagnoses Acute diverticulitis K57.92
--- NOTE | 2019-10-14 17:21 | Hospitalist Progress Note ---
Date of Service October 14, 2019 Assessment & Plan (1) Acute diverticulitis: Present on admission with worsening abdominal pain x [address] scan abdomen pelvis revealed acute diverticulitis at the junction of the descending and sigmoid colon with extraluminal foci of gas in the mesentery. No free air. No focal fluid collection to suggest abscess. Moderate surrounding inflammatory change. Leukocytosis on admission 18.48k, then dropped to 13k Continue Cipro/Flagyl Day 32 Starting on clear liquid iet today continue IVF and pain control incentive spirometry and ambulation encouraged surgery on board recommended to continue IV abx and advanced diet slowly as tolerated Will need to get outpatient colonoscopy in 8 weeks (2) Microscopic hematuria: UA showed trace of blood Hgb stable Will need outpatient follow up and work up (3) DVT prophylaxis: On Lovenox SQ Code Status Full code Disposition Will discharge once medically stable Admission and Anticipated Discharge Date Admission Date: October 12, 2019 Subjective Pt was seen and examined Sitting in bed with no distress Pt said that she feels much better today She said that she does not have any abdominal pain She said that her stools have been watery Starting on clear liquid diet and tolerated well Denies any chest pain, palpitation, dizziness and SOB Physical Exam Physical Exam: General- No acute distress Head- atraumatic Eyes- PERRL, EOMI, ENT- oropharynx clear Neck- supple, no JVD Lungs- clear to auscultation Heart- regular rhythm; no murmur Abdomen- normal bowel sounds, nondistended Extremities- no calf tenderness Neuro- alert, oriented x 3; PERRL, EOMI; no facial palsy; no dysarthria Skin- warm & dry Results & Data Results & Data ([facility]) Vital Signs (Past 12 Hours) Vital Signs Temp Pulse Resp BP Pulse Ox 10/14/19 15:32 36.9 C 59 L 18 122/79 95 10/14/19 07:19 36.3 C L 57 L 16 120/78 98
[2019-10-14] MEDS: ENOXAPARIN INJ 40 MG/0.4 ML SYR SQ SCH (20:09)
[2019-10-14] MEDS ORDERED: PROMETHAZINE HCL 12.5 MG in SODIUM CHLORIDE 0.9% 50 ML IV PRN (23:35)
[2019-10-14] MEDS ORDERED: ACETAMINOPHEN 325 MG TAB PO PRN (23:50)
[2019-10-15] MEDS: ONDANSETRON INJ 2 MG/ML 2 ML VIAL IV PRN (02:17)
[2019-10-15] MEDS: CIPROFLOXACIN / D5W 400 MG/200 ML BAG IV SCH ×2 (03:25→16:09)
[2019-10-15] MEDS: SODIUM CHLORIDE 0.9% 1000ML 1,000 ML IV SCH ×4 (03:25→22:16)
[2019-10-15 05:58] LABS: Basophils # (auto) 0.02 K/uL (0-0.2); Basophils % (auto) 0.3 %; Eosinophils # (auto) 0.06 K/uL (0-0.5); Eosinophils % (auto) 0.8 %; Hematocrit (blood only) 33.8 % (37-47); Hemoglobin 11.3 g/dL (12.0-16.0); Immature Granulocytes # (auto) 0.01 K/uL (0.00-0.02); Immature Granulocytes % (auto) 0.1 %; Lymphocytes # (auto) 2.32 K/uL (1.2-3.4); Mean Corpuscular Hemoglobin 30.6 pg (25-34); Mean Corpuscular Hgb Conc 33.4 g/dL (32-36); Mean Corpuscular Volume 91.6 fL (80-100); Mean Platelet Volume 10.3 fL (7.4-10.4); Monocytes # (auto) 0.42 K/uL (0.11-0.59); Monocytes % (auto) 5.4 %; Neutrophils % (auto) 63.4 %; Platelet Count 216 K/uL (130-400); RDW Coefficient of Variation 12.7 % (11.5-14.5); RDW Standard Deviation 42.7 fL (36.4-46.3); Red Blood Count 3.69 M/uL (4.2-5.4); White Blood Count 7.73 K/uL (4.8-10.8)
[2019-10-15] MEDS ORDERED: ACETAMINOPHEN 500 MG TAB PO SCH (06:00)
[2019-10-15 06:38] LABS: Albumin Globulin Ratio 0.7 (0.9-2); Albumin Level 2.6 gm/dl (3.4-5.0); BUN Creatinine Ratio 9.2 (10-20); Bilirubin,Total 0.3 mg/dl (0.2-1); Calcium 8.9 mg/dl (8.5-10.1); Creatinine Clr Calc Pharmacy 115.8 ml/min; Est GFR (African American) 123.4; Est GFR (Non-African American) 106.5; Globulin 3.7 gm/dl (2.5-4.0); Potassium 3.8 mmol/L (3.5-5.1); Total Protein 6.3 gm/dl (6.4-8.2)
[2019-10-15] MEDS: metroNIDAZOLE 500 MG/100 ML BAG IV SCH ×3 (07:52→22:16)
--- NOTE | 2019-10-15 08:06 | Surgery Progress Note ---
Date of Service October 15, 2019 Assessment & Plan (1) Acute diverticulitis: We will continue her clear liquids Check her stool for C. difficile Continue her antibiotics as ordered I told her she will be in the hospital totally Saturday or Saturday Subjective Patient is on clear liquids and is having some diarrhea Her pain is improved in her abdomen but she did have some nausea yesterday She is asking for more food Physical Exam Constitutional: no acute distress Respiratory: normal respiratory effort Cardiovascular: Rate/Rhythm: regular rate Gastrointestinal (Abdomen): Inspection/Auscultation: abdomen not distended Skin: no rashes, warm and dry Neurologic: awake Psychiatric: Orientation: alert Results & Data Vital Signs (Past 12 Hours) Vital Signs Temp Pulse Resp BP Pulse Ox 10/14/19 23:25 36.4 C L 56 L 18 123/70 98 PG Care Time/CCT Total # of Minutes Spent Total Time Spent with Patient: Total time spent is greater than 50% in coordination of care (as documented) at patient's floor/unit and/or counseling patient: Coding Level of Care Code 38320 Inpt Consult Level 3 Diagnoses Acute diverticulitis K57.92
--- NOTE | 2019-10-15 15:00 | Hospitalist Progress Note ---
Date of Service October 15, 2019 Assessment & Plan (1) Acute diverticulitis: Present on admission with worsening abdominal pain x [address] scan abdomen pelvis revealed acute diverticulitis at the junction of the descending and sigmoid colon with extraluminal foci of gas in the mesentery. No free air. No focal fluid collection to suggest abscess. Moderate surrounding inflammatory change. Leukocytosis on admission 18.48k, then dropped to 13k, now normalized Continue Cipro/Flagyl Day 32 Case discussed with Surgery Dr[address] Pedersen that recommended to continue clear liquid diet today, then advance to full liquid in am continue IVF and pain control incentive spirometry and ambulation encouraged surgery on board recommended to continue IV abx and advanced diet slowly as tolerated Will need to get outpatient colonoscopy in 8 weeks (2) Diarrhea: Stool for Cdiff negative Will add probiotic Continue monitor electrolytes (3) Microscopic hematuria: UA showed trace of blood Hgb stable Will need outpatient follow up and work up (4) DVT prophylaxis: On Lovenox SQ Code Status Full code Disposition Will discharge once medically stable Admission and Anticipated Discharge Date Admission Date: October 12, 2019 Subjective Pt was seen and examined. Sitting in bed with no distress. Pt said that she feels fine She said that she had a rough night because she was up to use the bathroom all night She said that she has been having recurrent watery diarrhea He tolerates the clear liquid diet Denies any chest pain, palpitation, abdominal pain and fever Physical Exam Physical Exam: General- No acute distress Head- atraumatic Eyes- PERRL, EOMI, ENT- oropharynx clear Neck- supple, no JVD Lungs- clear to auscultation Heart- regular rhythm; no murmur Abdomen- normal bowel sounds, nondistended Extremities- no calf tenderness Neuro- alert, oriented x 3; PERRL, EOMI; no facial palsy; no dysarthria Skin- warm & dry Results & Data Results & Data ([facility]) Vital Signs (Past 12 Hours) Vital Signs Temp Pulse Resp BP Pulse Ox 10/15/19 08:08 36.5 C 52 L 16 126/78 97
[2019-10-15] MEDS: LACTOBACILLUS ACIDOPHILUS (FLORANEX) TAB PO SCH (20:56)
[2019-10-15] MEDS: ENOXAPARIN INJ 40 MG/0.4 ML SYR SQ SCH (20:56)
[2019-10-16] MEDS ORDERED: LORazepam 0.5 MG TAB PO STA (00:52)
[2019-10-16] MEDS: CIPROFLOXACIN / D5W 400 MG/200 ML BAG IV SCH ×2 (05:38→15:44)
[2019-10-16] MEDS: metroNIDAZOLE 500 MG/100 ML BAG IV SCH ×3 (05:38→23:10)
[2019-10-16] MEDS: SODIUM CHLORIDE 0.9% 1000ML 1,000 ML IV SCH ×2 (05:40→18:51)
[2019-10-16 06:46] LABS: BUN Creatinine Ratio 6.1 (10-20); Calcium 8.3 mg/dl (8.5-10.1); Creatinine Clr Calc Pharmacy 126.1 ml/min; Est GFR (African American) 126.9; Est GFR (Non-African American) 109.5; Potassium 3.6 mmol/L (3.5-5.1)
[2019-10-16] MEDS: LACTOBACILLUS ACIDOPHILUS (FLORANEX) TAB PO SCH ×2 (07:33→21:48)
--- NOTE | 2019-10-16 09:09 | Surgery Progress Note ---
Date of Service October 16, 2019 Assessment & Plan (1) Acute diverticulitis: Patient C. difficile was negative We will advance her diet to full liquids Continue IV antibiotics If she does well she can possibly be discharged Saturday or Saturday If she is stable I do not think we have to repeat the CAT scan for [address] Andres is covering over the weekend Subjective She is feeling much better Some loose bowel movements Minimal pain Physical Exam Constitutional: no acute distress Respiratory: normal respiratory effort; no respiratory distress Cardiovascular: Rate/Rhythm: regular rate Gastrointestinal (Abdomen): Inspection/Auscultation: abdomen not distended Skin: no rashes, warm and dry Neurologic: awake Psychiatric: Orientation: alert Results & Data Vital Signs (Past 12 Hours) Vital Signs Temp Pulse Resp BP Pulse Ox 10/16/19 07:31 36.7 C 50 L 18 124/82 97 10/15/19 23:57 36.5 C 44 L 16 149/84 H 95 PG Care Time/CCT Total # of Minutes Spent Total Time Spent with Patient: Total time spent is greater than 50% in coordination of care (as documented) at patient's floor/unit and/or counseling patient: Coding Level of Care Code 19306 Inpt Consult Level 3 Diagnoses Acute diverticulitis K57.92
[2019-10-16] MEDS ORDERED: ZOLPIDEM TARTRATE 5 MG TAB PO PRN (17:40)
--- NOTE | 2019-10-16 17:49 | Hospitalist Progress Note ---
Date of Service October 16, 2019 Assessment & Plan (1) Acute diverticulitis: Present on admission with worsening abdominal pain x [address] scan abdomen pelvis revealed acute diverticulitis at the junction of the descending and sigmoid colon with extraluminal foci of gas in the mesentery. No free air. No focal fluid collection to suggest abscess. Moderate surrounding inflammatory change. Leukocytosis on admission 18.48k, then dropped to 13k, now normalized Continue Cipro/Flagyl Day 5 Case discussed with Surgery Dr. Pedersen that recommended to advance to full liquid diet today IVF discontinued and continue pain control incentive spirometry and ambulation encouraged Will need to get outpatient colonoscopy in 8 weeks Possible discharge tomorrow if stable (2) Diarrhea: Stool for Cdiff negative Continue probiotic Continue monitor electrolytes Resolved (3) Microscopic hematuria: UA showed trace of blood Hgb stable Will need outpatient follow up and work up (4) DVT prophylaxis: Refused to continue Lovenox SQ, has been ambulating in the hallway Code Status Full code Disposition Possible discharge tomorrow Update provided to the over the phone as per patient permission Admission and Anticipated Discharge Date Admission Date: October 12, 2019 Subjective Pt was seen and examined Sitting in bed with no distress Pt said that she feels fine She tolerated full liquid diet She said that she does not have anymore diarrhea since yesterday Denies any chest pain, palpitation, dizziness and SOB Physical Exam Physical Exam: General- No acute distress Head- atraumatic Eyes- PERRL, EOMI, ENT- oropharynx clear Neck- supple, no JVD Lungs- clear to auscultation Heart- regular rhythm; no murmur Abdomen- normal bowel sounds, soft, nontender Extremities- no calf tenderness Neuro- alert, oriented x 3; PERRL, EOMI; no facial palsy; no dysarthria Skin- warm & dry Results & Data Results & Data ([facility]) Vital Signs (Past 12 Hours) Vital Signs Temp Pulse Resp BP Pulse Ox 10/16/19 15:16 36.5 C 64 16 122/78 98 10/16/19 07:31 36.7 C 50 L 18 124/82 97
[2019-10-17] MEDS: CIPROFLOXACIN / D5W 400 MG/200 ML BAG IV SCH (03:41)
[2019-10-17] MEDS: metroNIDAZOLE 500 MG/100 ML BAG IV SCH (05:29)
[2019-10-17] MEDS: LACTOBACILLUS ACIDOPHILUS (FLORANEX) TAB PO SCH (08:41)
--- NOTE | 2019-10-17 12:01 | Surgery Progress Note ---
Date of Service October 17, 2019 Assessment & Plan (1) Diverticulitis: Diverticulitis with microperforation Now asymptomatic Agree with discharge for today Sent home on oral antibiotics Will need colonoscopy at some point in the near future after this is completely resolved Subjective Feels well today Denies nausea and vomiting Denies abdominal pain Bowels are moving Tolerated diet Physical Exam Gastrointestinal (Abdomen): Inspection/Auscultation: normal bowel sounds; abdomen not distended Percussion/Palpation: abdomen soft; abdomen nontender Results & Data Vital Signs (Past 12 Hours) Vital Signs Temp Pulse Resp BP Pulse Ox 10/17/19 07:48 36.5 C 49 L 16 150/82 H 98
--- NOTE | 2019-10-17 12:13 | Hospitalist Progress Note ---
Date of Service October 17, 2019 Assessment & Plan (1) Acute diverticulitis: Present on admission with worsening abdominal pain x [address] scan abdomen pelvis revealed acute diverticulitis at the junction of the descending and sigmoid colon with extraluminal foci of gas in the mesentery. No free air. No focal fluid collection to suggest abscess. Moderate surrounding inflammatory change. Leukocytosis on admission 18.48k, then dropped to 13k, now normalized Continue Cipro/Flagyl Day 6 Case discussed with Surgery Dr[address] Pedersen that recommended to advance diet as tolerated IVF discontinued and continue pain control incentive spirometry and ambulation encouraged Tolerated low fiber diet Will discharge on Flagyl and cipro oral to complete 2 weeks course of abx Will need to get outpatient colonoscopy in 8 weeks Clinically stable (2) Diarrhea: Stool for Cdiff negative Continue probiotic Continue monitor electrolytes Resolved (3) Microscopic hematuria: UA showed trace of blood Hgb stable Will need outpatient follow up and work up (4) DVT prophylaxis: Refused to continue Lovenox SQ, has been ambulating in the hallway Code Status Full code Disposition Discharge home today Update provided to the over the phone as per patient permission Admission and Anticipated Discharge Date Admission Date: October 12, 2019 Subjective Pt was seen and examined Sitting in bed with no distress Pt said that she feels fine She said that she tolerated low fiber diet Denies any chest pain, palpitation, dizziness and SOB Physical Exam Physical Exam: General- No acute distress Head- atraumatic Eyes- PERRL, EOMI, ENT- oropharynx clear Neck- supple, no JVD Lungs- clear to auscultation Heart- regular rhythm; no murmur Abdomen- normal bowel sounds, soft, nontender Extremities- no calf tenderness Neuro- alert, oriented x 3; PERRL, EOMI; no facial palsy; no dysarthria Skin- warm & dry Results & Data Results & Data ([facility]) Vital Signs (Past 12 Hours) Vital Signs Temp Pulse Resp BP Pulse Ox 10/17/19 07:48 36.5 C 49 L 16 150/82 H 98
--- NOTE | 2019-10-18 18:18 | Discharge Summary ---
Date of Service October 18, 2019 Admission HPI Per Admitting Provider This is a pleasant 49-year-old female who has no significant past medical history who presents to ED secondary to abdominal pain x3 days. Abdominal pain mostly located left upper and left lower quadrant. Pain is constant but comes and goes in severity. Is improved with rest and is made worse with any sort of position change. She denies any nausea and vomiting but overall has had significant decreased appetite and has not anything to eat or drink for the past 24 hours. She further elicits chills. She did have 3 BMs yesterday that were formed and 2 this morning that were diarrhea. She denies any melena or h ematochezia. Typically she moves her bowels once daily first thing in the morning. She is never had anything like this in the past, except pain when she had a hysterectomy. She denies any cody fever, sweats, dizziness, lightheadedness, syncope, chest pain, shortness breath, palpitations, cough, emesis, hematemesis, dysuria, increased urgency or frequency with urination. She denies any recent respiratory symptoms or known contact or exposure to covid-19. In ED patient remained hemodynamically stable. She had leukocytosis at 18.4k, H&H stable at 14.8 and 43.4, platelet 272, sodium 133, K3.7, BUN 13, creatinine 0.86, lipase 51. Urinalysis +2 ketones, +2 blood numerous epithelial cells, likely contaminated. CT scan abdomen pelvis revealed acute diverticulitis at the junction of the desc ending and sigmoid colon with extraluminal foci of gas in the mesentery. No free air. No focal fluid collection to suggest abscess. Moderate surrounding inflammatory change. She was started on IV Cipro/Flagyl in ED as well as IVF. Pain improved with dilaudid. Admission Exam Per Admitting Provider Constitutional: WD/WN, vitals as above, NAD, sitting up in bed, pleasant, conversing easily Head: Normocephalic, Atraumatic Eyes: PERRL, conjunctivae normal, anicteric sclerae ENMT: external ear and nose normal, oropharynx normal Neck: trachea midline, no thyromegaly normal visual inspection Respiratory: normal respiratory effort, lungs clear to auscultation, no wheeze, rales, rhonchi. Normal insp/exp effort, no accessory muscle use Cardiovascular: RRR, no murmur, no edema Vessels: no JVD or carotid bruit Chest: normal inspection of chest Abdomen: normal bowel sounds, soft, tender throughout abdominal with maximal pain at LLQ and LUQ, no rebound, guarding, no hepatosplenomegaly Musculoskeletal: no cyanosis or clubbing, extremities motor strength 5/5 Skin: no rashes, warm and dry normal turgor Neurologic: PERRL, , accommodation nl, no face palsy, no dysarthria CN's II-XI intact bilaterally and moves all extremities Psychiatric: A+Ox3, euthymic affect Lymphatic: no cervical or axillary lymphadenopathy : deferred Principal Diagnosis Acute diverticulitis Diarrhea: Microscopic hematuria: Discharge Exam General- No acute distress Head- atraumatic Eyes- PERRL, EOMI, ENT- oropharynx clear Neck- supple, no JVD Lungs- clear to auscultation Heart- regular rhythm; no murmur Abdomen- normal bowel sounds, soft, nontender Extremities- no calf tenderness Neuro- alert, oriented x 3; PERRL, EOMI; no facial palsy; no dysarthria Skin- warm & dry Discharge Data Allergies Allergy/AdvReac Type Severity Reaction Status Date / Time Penicillins Allergy Unknown HIVES Verified 10/12/19 14:56 Consultations 10/12/19 15:40 ED Decision to Admit Stat 10/12/19 16:26 Consult General Surgery Routine Ordered Studies 10/12/19 13:57 CT abd pelvis IV con only Stat CT abd pelvis IV con only CLINICAL HISTORY: 49 years-old Female presenting with left sided abdominal pain. TECHNIQUE: Multidetector CT of the abdomen and pelvis was performed after the administration of intravenous contrast. IV contrast: 94 mL of Optiray. One or more dose lowering techniques were used consistent with the principles of ALARA (as low as reasonably achievable), including automatic exposure control, mA or kV adjustment to individual patient size, and/or use of iterative reconstruction. COMPARISON: None. CT DOSE (mGy.cm): The estimated cumulative dose is 618.73 mGy.cm. FINDINGS: Audio Visual Secretary topogram: Unremarkable. Lung bases: Normal heart size. No pericardial or pleural effusion. Minimal dependent changes likely atelectasis. Liver: Normal morphology. No liver lesion. Patent hepatic vasculature. Biliary: No intrahepatic or extrahepatic biliary ductal dilatation. Normal gallbladder. Pancreas: Mild parenchymal atrophy. Spleen: Normal. Adrenal glands: Normal. Kidneys and ureters: 3 mm punctate nonobstructing calculus at the lower pole of the right kidney. No hydronephrosis. Bladder: Incompletely evaluated secondary to underdistention. Pelvic organs: Uterus surgically absent. No adnexal masses. Bowel: Diverticulosis of the proximal to mid sigmoid and distal descending colon with focal wall thickening and pericolonic inflammatory change at the junction of the descending and sigmoid colon. Focus of extraluminal gas in the mesentery (series 3 image 276). No focal fluid collection to suggest abscess at this time. Adjacent peritoneal thickening. Peritoneal cavity: Trace fluid in the left paracolic gutter. No focal fluid collection to suggest abscess. Gas collection in the mesentery as mentioned. No free intraperitoneal gas despite the focus of extraluminal gas. Lymph nodes: No enlarged lymph nodes in the abdomen or pelvis. Vasculature: Aorta and IVC patent and normal in caliber. Abdominal wall: Normal. Musculoskeletal: Degenerative changes of the spine. IMPRESSION: 1. Acute diverticulitis at the junction of the descending and sigmoid colon with extraluminal foci of gas in the mesentery. No free air. No focal fluid collection to suggest abscess. Moderate surrounding inflammatory change. ACT 112: Negative or not required by law. Electronically signed by: Rod Payan M.D. 10/12/2019 3:15 PM Dictated: 10/12/19 1505 Transcribed: 10/12/19 1505 Hospital Course (1) Acute diverticulitis: Present on admission with worsening abdominal pain x [address] scan abdomen pelvis revealed acute diverticulitis at the junction of the descending and sigmoid colon with extraluminal foci of gas in the mesentery. No free air. No focal fluid collection to suggest abscess. Moderate surrounding inflammatory change. Leukocytosis on admission 18.48k, then dropped to 13k, now normalized Continue Cipro/Flagyl Day [address] Case discussed with Surgery Dr[address] Pedersen that recommended to advance diet as tolerated IVF discontinued and continue pain control incentive spirometry and ambulation encouraged Tolerated low fiber diet Will discharge on Flagyl and cipro oral to complete 2 weeks course of abx Will need to get outpatient colonoscopy in 8 weeks Clinically stable (2) Diarrhea: Stool for Cdiff negative Continue probiotic Continue monitor electrolytes Resolved (3) Microscopic hematuria: UA showed trace of blood Hgb stable Will need outpatient follow up and work up (4) DVT prophylaxis: Refused to continue Lovenox SQ, has been ambulating in the hallway Code Status Full code Disposition Discharge home today Update provided to the over the phone as per patient permission Total Time Total Time Spent Total Time Spent (In Minutes): 35 minutes Total Time Includes: Examination of the Patient, Discharge Planning, Medication Reconciliation, Communication With Other Providers and Other Discharge Plan Discharge Items Patient Disposition: Home - Self-Care Reason For Visit: DIVERTICULITIS Discharge Diagnosis: Acute diverticulitis Diarrhea: Microscopic hematuria: Activity: Resume your previous activity Non-emergency contact: Primary Care Provider Call non-emergency contact if: you have any medication questions Follow-up/Referrals: [facility],Medicine [Primary Care Provider] - Diet: Low Fiber Addtl Attending Provider Instructions: Please call your primary care provider to schedule a follow up appointment Follow up with surgery or gastroenterology to arrange for a colonoscopy ( your physician will arrange that) Please complete course of the antibiotic with cipro and flagyl Follow up a low fiber diet Pending Studies at Discharge: No Stand-Alone Forms: My [facility] [email or web address], Smoking Cessation Medications and DC Order Prescriptions: New Lactobacillus acidoph-L.bulgar [Floranex] 1 million cell Tablet 4 tab PO BID Qty: 20 RF: 0 ciprofloxacin HCl 500 mg tablet 500 mg PO BID 9 Days Qty: 18 RF: 0 metronidazole [Flagyl] 500 mg tablet 500 mg PO TID 9 Days Qty: 27 RF: 0 Continued Excedrin Migraine 250-250-65 mg Tablet 1 tab PO Q6H PRN (Reason: Migraine Headache) RF: 0 Discharge Orders: Discharge Order (Routine); Ordered 10/17/19 Ordered By: Toni Silva/Other Patient Handouts: Diet Low Residue, Discharge Instructions for Diverticulitis Admission Data Admit Date/Time: 10/12/19 15:47 Attending Provider: Toni Walton Admit Provider: Elizabeth Arevalo Primary Care Provider: [facility],Medicine Other Providers: Elizabeth Arevalo ; Shamir Pedersen Other Interventions: Discharge Summary Assessment (RN) Last Done: 10/17/19 13:05 DC Date/Time DO NOT enter until pt leaves facility: 10/17/19 13:48
== END 2019-10-17 13:48 | disposition home or self-care (01) | DRG 392 ==
LOC: ED 13:40 → 3E 15:47 → SUATTDRO 15:47 → 3E 16:12